=== PATIENT | male | born 1980 | race Caucasian/White ===

== ENCOUNTER → 2019-08-05 20:49 | Outpatient (CLI) | payer OTHER, SELFPAY ==
[2019-08-05 21:51] LABS: Influenza A - CEPHEID Flu A NEGATIVE (NEGATIVE); Influenza B - CEPHEID Flu B NEGATIVE (NEGATIVE)
== END ==
PROVIDERS: Visit Provider Physician Assistant
DX: R68.89 Other general symptoms and signs (principal)
CPT/HCPCS: 87502